=== PATIENT | female | born 1995 ===

== ENCOUNTER 2023-03-14 13:22 | Emergency (ER) | payer OTHER ==
[~2023-03-14] VITALS: Ht 157.5 cm; Wt 69.4 kg
[2023-03-14 15:37] LABS: BASOPHILS ABSOLUTE AUTO 0.03 K/mm3 (0.00-0.23); BASOPHILS PERCENT AUTO 0 % (0-2); EOSINOPHILS PERCENT AUTO 2 % (0-6); Hemoglobin 13.3 g/dL (11.5-16.0); IMMATURE GRAN ABSOLUTE AUTO 0.03 K/mm3 (0.00-0.10); IMMATURE GRAN PERCENT AUTO 0 % (0-1); LYMPHOCYTES ABSOLUTE AUTO 1.58 K/mm3 (0.84-5.20); LYMPHOCYTES PERCENT AUTO 24 % (21-46); MONOCYTES ABSOLUTE AUTO 0.61 K/mm3 (0.16-1.47); MONOCYTES PERCENT AUTO 9 % (4-13); Mean Corpuscular HGB 25.3 pg (26.0-34.0); Mean Corpuscular HGB Conc 33.3 g/dL (31.5-36.5); Mean Corpuscular Volume 76 fL (80-100); Mean Platelet Volume 10.3 fL (9.1-12.4); NEUTROPHILS ABSOLUTE AUTO 4.34 K/mm3 (1.96-9.15); NEUTROPHILS PERCENT AUTO 65 % (41-73); Platelet Count 354 K/mm3 (150-400); RDW Coefficient Variation 14.6 % (11.7-14.2); RDW Standard Deviation 39.8 fL (35.1-46.3); Red Blood Cell Count 5.26 M/mm3 (3.80-5.20); White Blood Cell Count 6.69 K/mm3 (4.00-11.30)
[2023-03-14 15:58] LABS: Albumin, Blood 3.8 g/dL (3.4-5.0); Albumin/Globulin Ratio 0.9 (0.8-1.8); Bilirubin, Total 0.4 mg/dL (0.1-1.0); Calcium, Blood 8.5 mg/dL (8.5-10.1); Creatinine, Blood 0.5 mg/dL (0.40-1.00); Globulin, Blood 4.4 g/dL (2.2-4.0); Potassium, Blood 3.7 mmol/L (3.5-5.5); Total Protein, Blood 8.2 g/dL (6.4-8.2)
[2023-03-14 17:35] VITALS: BP 108/68
[2023-03-14 17:44] LABS: Source, Urine Clean Catch
[2023-03-14 17:57] LABS: Appearance, Urine Hazy (Clear); Bilirubin, Urine Neg (Neg); Blood, Urine 2+ (Neg); Color, Urine Yellow (P-Yellow); Glucose Qualitative, Urine Neg (Neg); Ketones, Urine 1+ (Neg); Leukocyte Esterase, Urine 3+ (Neg); Nitrite, Urine Neg (Neg); Protein, Urine 2+ (Neg); Specific Gravity, Urine 1.015 (1.003-1.022); Urobilinogen, Urine NORM (Normal); pH, Urine 6.5 (5.0-8.0)
[2023-03-14 18:25] LABS: Bacteria Many /hpf; Squamous Epithelial Cells Mod /hpf (Few); White Blood Cells, Urine 25-50 /hpf (0-5)
[2023-03-14] MEDS ORDERED: CEPH500 PO (19:18)
== END 2023-03-14 19:35 | disposition home or self-care (01) ==
LOC: ER 13:22
PROVIDERS: Physician Assistant
DX: N39.0 Urinary tract infection, site not specified (principal)
CPT/HCPCS: 80053; 81001; 84703; 85025; 87086; 96374; 99284-25; A9270; J1885

== ENCOUNTER → 2023-12-10 | Outpatient (CLI) | payer OTHER ==
[~2023-12-10] MED LIST: CEPH500 PO
[2023-12-12 18:59] LABS: HIV 1,2 COMBO ANTIGEN/ANTIBODY Negative (Negative)
[2023-12-13 06:00] LABS: APTIMA MEDIA TYPE Urine; C. TRACHOMATIS BY TMA Negative (Negative); N. GONORRHOEAE BY TMA Negative (Negative); SPECIMEN SOURCE Urine
== END | disposition home or self-care (01) ==
LOC: LAB SHORT 17:32
PROVIDERS: Student in an Organized Health Care Education/Training Program
DX: Z72.51 High risk heterosexual behavior (principal)
CPT/HCPCS: 86592; 87389; 87491; 87591

== ENCOUNTER → 2024-01-23 | Outpatient (CLI) | payer OTHER ==
[2024-01-26 11:38] LABS: Prolactin 7.5 ng/mL; Thyroid Stimulating Hormone 1.95 uIU/mL (0.360-4.800)
[2024-01-26 13:20] LABS: Bacterial Vaginosis PCR Negative (NEGATIVE); Candida Group, PCR NOT DETECTED (NOT DETECT); Candida glabrata-krusei, PCR NOT DETECTED (NOT DETECT)
[2024-01-28 10:16] LABS: APTIMA MEDIA TYPE Urine; C. TRACHOMATIS BY TMA Negative (Negative); N. GONORRHOEAE BY TMA Negative (Negative); SPECIMEN SOURCE Urine
[2024-01-29 08:03] LABS: ESTRONE BY MASS SPEC 32.5 pg/mL
[2024-01-30 13:53] LABS: TESTOSTERONE BY MASS SPEC 30 ng/dL (9-55)
[2024-02-02 11:54] LABS: TESTOSTERONE, FREE MASS SPEC 7.2 pg/mL (0.8-7.4)
== END ==
LOC: LAB 15:50 → LAB SHORT 15:50
PROVIDERS: Student in an Organized Health Care Education/Training Program
DX: N89.8 Other specified noninflammatory disorders of vagina (principal); N91.2 Amenorrhea, unspecified
CPT/HCPCS: 82679; 83001; 84146; 84402; 84403; 84443; 86592; 87481; 87491; 87591; 87661; 87801

== ENCOUNTER → 2024-05-17 | Outpatient (CLI) | payer OTHER | LOC: LAB SHORT 14:10 → LAB 14:10 | DX: N72 Inflammatory disease of cervix uteri (principal) | CPT/HCPCS: 87070; 87205 ==

== ENCOUNTER → 2024-06-24 | Outpatient (CLI) | payer OTHER | LOC: LAB SHORT 14:19 → LAB 14:19 | DX: A15.9 Respiratory tuberculosis unspecified (principal) | CPT/HCPCS: 87116 ==

== ENCOUNTER → 2024-07-19 | Outpatient (CLI) | payer OTHER ==
[2024-07-21 22:54] LABS: QUANTIFERON MITOGEN MINUS NIL 9.95 IU/mL; QUANTIFERON NIL 0.05 IU/mL; QUANTIFERON PLUS TB1 MINUS NIL 9.95 IU/mL (<=0.34); QUANTIFERON PLUS TB2 MINUS NIL 9.95 IU/mL (<=0.34)
== END | disposition home or self-care (01) ==
LOC: LAB 18:57 → LAB SHORT 18:57
PROVIDERS: Family Medicine
DX: A15.9 Respiratory tuberculosis unspecified (principal)
CPT/HCPCS: 86480